=== PATIENT | male | born 1930 | race African-American/Black ===

== ENCOUNTER 2019-06-26 10:41 | Emergency (ER) | payer MEDICARE ==
[2019-06-26] MEDS ORDERED: Fentanyl 100 MCG/2 ML VIAL ONE (11:02)
[2019-06-26 11:23] LABS: #Basophils 0.1 thou/uL (0.0-0.2); #Monocytes 0.4 thou/uL (0.11-0.59); #Neutrophils 4.8 thou/uL (1.40-6.50); %Basophils 0.8 % (0.0-1.0); %Eosinophils 0.5 % (0.0-10.0); %Lymphocytes 15.5 % (21.0-51.0); %Monocytes 6.7 % (0.0-10.0); %Neutrophils 76.6 % (42.0-75.0); Anisocytosis SLIGHT = 6-15 cells (100X) (0-5/hpf); Elliptocytes SLIGHT = 2-5 cells (100X) (0-1/hpf); Hemoglobin 14.4 g/dL (14.0-18.0); MDiff Complete? YES; Mean Corpuscular HGB CONC 28.5 g/dL (32.0-36.0); Mean Corpuscular Hemoglobin 24.3 pg (27.0-31.0); Mean Corpuscular Volume 85.2 fL (78.0-98.0); Mean Platelet Volume 9.4 fL (7.4-10.4); Platelet Count 190 thou/uL (130-400); Poikilocytosis SLIGHT = 6-15 cells (100X) (0-5/hpf); RBC Distribution Width 14.9 % (11.5-14.5); Red Blood Cell (RBC) Count 5.92 mill/uL (4.70-6.10); White Blood Cell (WBC) Count 6.2 thou/uL (4.8-10.8)
[2019-06-26 11:36] LABS: ALT (SGPT) 18 U/L (8-55); AST (SGOT) 21 U/L (5-34); Albumin 3.9 g/dL (3.4-4.8); Alkaline Phosphatase 113 U/L (40-110); Anion Gap 17 mmol/L (10-20); BUN (Urea Nitrogen) 12 mg/dL (8.4-25.7); Calc. Creatinine Clearance 0 mL/min (70-130); Calcium 9.2 mg/dL (7.8-10.44); Carbon Dioxide 25 mmol/L (23-31); Chloride 104 mmol/L (98-107); Estimated GFR-MDRD 62; Globulin 4.5 g/dL (2.4-3.5); Glucose 72 mg/dL (83-110); Potassium 3.7 mmol/L (3.5-5.1); Protein, Total 8.4 g/dL (5.8-8.1); Sodium 142 mmol/L (136-145)
[2019-06-26 11:58] LABS: INR-International Normal Ratio 1.3; Prothrombin Time 16.1 SEC (12.0-14.7)
--- NOTE | 2019-06-26 12:39 | CT ---
CT BRAIN WITHOUT CONTRAST: 06/26/2019 HISTORY/TECHNIQUE: A noncontrast CT was done after a fall. FINDINGS: The ventricles are normal in size for age and atrophy and show no shift. No intracranial bleeding or extraaxial hematoma is seen. An old stroke in the right basal ganglia/internal capsule region is note d. There is no sign of acute stroke, mass or edema. The skull appears intact. The paranasal sinuses are clear. The mastoid air cells are clear, except fo r a few cells at the tip of the right mastoid process. IMPRESSION: Atrophy and old ischemic changes but no acute traumatic findings. Report called to German in ER at 11:45 on 06/26/2019. CODE CR POS: HOME
--- NOTE | 2019-06-26 12:45 | RAD ---
PORTABLE CHEST: 06/26/2019 1118 HOURS COMPARISON: No prior films are available for comparison. FINDINGS: This portable study shows the heart to be upper normal to borderline large. There is no congestive ch genna present. There is a little patchy increased density in the lower lobes that is likely atelectasi s or chronic. There might be a small amount of fluid in the left costophrenic angle but this could be easily chronic as well. I see no obvious rib fractures. There is no pneumothorax. The mediastinum sh ows no widening. The trachea deviates to the right as it crosses the aortic arch, which may be mildly dilated. Some calcified nodes and granulomas are noted on the left. IMPRESSION: Chronic changes but no definite acute findings. If an old film exists, it would be very useful to compare with. POS: HOME
[2019-06-26 13:01] LABS: Bilirubin Negative (Negative); Blood, Urine Trace (Negative); Clarity Clear (Clear); Glucose, Urine (Dipstick) Negative (Negative); Leukocyte Negative (Negative); Nitrite Negative (Negative); Protein, Urine (Dipstick) Negative (Neg-Trace); Urobilinogen 0.2 mg/dL (Less than 2)
[2019-06-26 13:07] LABS: RBC/HPF 0-3 HPF (0-3); Squamous Epithelial 0-3 HPF (0-3); WBC/HPF None Seen HPF (0-3)
[2019-06-26 13:08] LABS: Bacteria/HPF None Seen HPF (None Seen)
[2019-06-26] MEDS ORDERED: Morphine 2 MG/ML SYRINGE ONE (13:42)
--- NOTE | 2019-06-26 13:51 | RAD ---
LEFT HIP FOUR VIEWS: 06/26/2019 FINDINGS: There is a faint sclerotic line across the femoral neck on some of the views. On one view it seems to extend outside the neck but it is less certain on others. Given these findings and the difficulty in getting these films on this patient, I recommend doing a CT of the hip to remove all doubt and be bagley re there is no impacted fracture here. The adjacent pubic ring appears intact. There is no dislocatio n. The joint space is normal for age. IMPRESSION: Equivocal sclerotic line across the femoral neck. CT to be sure there is no impacted fracture is faizan mmended. Findings discussed with Dr. Cardenas at 1257 hours on 06/26/2019. CODE CR POS: HOME
--- NOTE | 2019-06-26 14:07 | CT ---
CT PELVIS: 06/26/2019 HISTORY/TECHNIQUE: A spiral CT of the pelvis was performed following trauma and for questionable findings on the patient 's plain film of the hip. Axial slices were acquired followed by coronal and sagittal reconstructions. FINDINGS: There is a tiny crack in the cortex of the anterior part of the left hip, at the junction of the neck and femoral head. A small cortical-like fragment is seen best on the sagittal images of the left hip , particularly images 42 and 43. There is a small angulation of cortex here on the axial images, part icularly image 69. In addition, there is a vague sclerotic line across the anterior part of the left femoral neck, best seen on the coronal images, slices 55 through 56. I cannot exclude an impacted fra cture here though this is more difficult to be certain about. The remainder of the bony pelvis appears intact. Degenerative changes are present in each hip joint, more so in the right than the left. The SI joints and arcuate lines of the pelvis are unremarkable. The surrounding soft tissues of the pelvis show perhaps a tiny trace of fluid in the rectovesical spa ce on the right, but there are certainly no large amounts of fluid present. No pelvic hematomas are a ppreciated. Degenerative changes are present in the lower lumbar spine. IMPRESSION: 1. Definite small fracture fragment of the left hip, at the junction of the femoral neck and femoral head, anteriorly. 2. Vague sclerotic line across the left femoral neck, seen best on coronal images. I cannot rule out an impacted subcapital fracture here. Findings discussed with Dr. Cardenas at 1328 hours on 06/26/2019. CODE CR POS: HOME
== END 2019-06-26 13:59 | disposition short-term general hospital (02) ==
LOC: BURERS 10:41
DX: S72.002A Fracture of unspecified part of neck of left femur, initial encounter for closed fracture (principal); S00.83XA Contusion of other part of head, initial encounter; Z79.01 Long term (current) use of anticoagulants; Z86.73 Personal history of transient ischemic attack (TIA), and cerebral infarction without residual deficits; W01.198A Fall on same level from slipping, tripping and stumbling with subsequent striking against other object, initial encounter
CPT/HCPCS: 36415; 70450; 71045; 72192; 80053; 81003; 81015; 85025; 85610; 85730; 96374; 96375; J2270; J3010

== ENCOUNTER 2019-06-30 20:34 | Inpatient (IN) | payer MEDICARE ==
[2019-07-01] MEDS ORDERED: Ibuprofen 200 MG TAB PO SCH (02:00)
[2019-07-01] MEDS: Acetaminophen 500 MG TAB PO SCH ×5 (02:15→23:28)
[2019-07-01 06:33] LABS: INR-International Normal Ratio 1.8; Platelet Count 205 thou/uL (130-400); Prothrombin Time 21.1 SEC (12.0-14.7)
[2019-07-01] MEDS ORDERED: Bisacodyl 10 MG SUPP PR PRN (07:47)
[2019-07-01] MEDS ORDERED: Warfarin Sodium 5 MG TAB PO SCH (09:00)
[2019-07-01] MEDS: Senokot S 8.6-50 MG TAB PO SCH ×2 (10:07→20:44)
[2019-07-01] MEDS: Gabapentin 100 MG CAP PO SCH ×3 (10:08→20:44)
[2019-07-01] MEDS: Ibuprofen 200 MG TAB PO SCH ×2 (13:05→21:00)
[2019-07-01] MEDS: Warfarin Sodium 5 MG TAB PO SCH (17:30)
[2019-07-01] MEDS ORDERED: Prevnar 13-Val Conj/PF 0.5 ML SYRINGE IM ONE (21:00)
[2019-07-01] MEDS ORDERED: FLU VACC TS2019-20(65YR UP)/PF 180 MCG/0.5 ML SYRINGE IM ONE (21:00)
[2019-07-02] MEDS: Ibuprofen 200 MG TAB PO SCH ×3 (05:18→21:09)
[2019-07-02] MEDS: Acetaminophen 500 MG TAB PO SCH ×4 (05:18→23:53)
[2019-07-02] MEDS: Senokot S 8.6-50 MG TAB PO SCH ×2 (08:48→20:13)
[2019-07-02] MEDS: Gabapentin 100 MG CAP PO SCH ×3 (08:49→20:13)
[2019-07-02] MEDS: Warfarin Sodium 5 MG TAB PO SCH (16:36)
[2019-07-03 05:35] LABS: Hemoglobin 13.5 g/dL (14.0-18.0); Platelet Count 172 thou/uL (130-400)
[2019-07-03] MEDS: Acetaminophen 500 MG TAB PO SCH ×3 (05:37→18:00)
[2019-07-03] MEDS: Ibuprofen 200 MG TAB PO SCH ×3 (05:37→21:28)
[2019-07-03] MEDS: Senokot S 8.6-50 MG TAB PO SCH ×2 (08:44→21:28)
[2019-07-03] MEDS: Gabapentin 100 MG CAP PO SCH ×3 (08:44→21:28)
[2019-07-03] MEDS ORDERED: Polyethylene Glycol 3350 17 GM Packet PO PRN (11:06)
[2019-07-03 16:03] LABS: INR-International Normal Ratio 2.3; Prothrombin Time 25.3 SEC (12.0-14.7)
[2019-07-03] MEDS: Warfarin Sodium 5 MG TAB PO SCH (18:00)
[2019-07-04] MEDS: Acetaminophen 500 MG TAB PO SCH ×5 (00:24→23:10)
[2019-07-04 05:09] LABS: INR-International Normal Ratio 2.5; PTT 46.2 SEC (22.9-36.1); Prothrombin Time 26.7 SEC (12.0-14.7)
[2019-07-04] MEDS: Ibuprofen 200 MG TAB PO SCH ×3 (05:45→21:00)
[2019-07-04] MEDS: Gabapentin 100 MG CAP PO SCH ×3 (08:42→21:00)
[2019-07-04] MEDS: Senokot S 8.6-50 MG TAB PO SCH ×2 (08:42→21:00)
[2019-07-04] MEDS: Warfarin Sodium 5 MG TAB PO SCH (17:26)
[2019-07-04] MEDS ORDERED: Zolpidem Tartrate 5 MG TAB PO SCH (21:15)
--- NOTE | 2019-07-05 03:53 | HP ---
PRIMARY CARE PHYSICIAN: Dr. Augustin. CHIEF COMPLAINT: Skilled rehabilitation with physical and occupational therapy after a recent fall on left side resulting to a left femoral fracture, status post percutaneous screw fixation. HISTORY OF PRESENT ILLNESS: Mr. 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 The patient is being treated at [facility] along with [facility] nurse for chronic venous ulcers. Mr. Bell was admitted on 06/26/2019 at [facility] after a mechanical fall from standing, resulting to injury on his left side. He sustained a left periorbital hematoma and left femoral neck fracture. The patient underwent percutaneous screw fixation of left femoral hip fracture under Dr. Franco Fernandes. The patient did well intra and postoperatively. He started physical therapy prior to his transfer to skilled rehab. Due to his decreased functional ability, decreased range of motion, decreased strength, decreased bed mobility with gait instability, he was referred for skilled rehabilitation. The patient is requiring minimal assistance x2 on bed mobility, transfers from supine to sitting position. He requires maximal assistance from sitting to standing, standing to sitting, and sitting to supine position. He denies any concern, pain is well controlled with his current pain regimen. He is participating with physical and occupational therapy. PAST MEDICAL HISTORY: 1. Hypertension. 2. CVA with left hemiparesis. 3. Prostate cancer. 4. 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 5. Gait instability. FAMILY HISTORY: Denies history of cancer or early coronary artery disease. PAST SURGICAL HISTORY: 1. Left femoral neck fracture, percutaneous screw fixation. 2. Prostatectomy. 3. Inguinal herniorrhaphy. ALLERGIES: NO KNOWN DRUG ALLERGIES. MEDICATIONS: 1. Tylenol 1000 mg every 6 hours p.r.n. for pain. 2. Dulcolax 10 mg suppository daily p.r.n. 3. Neurontin 100 mg t.i.d. 4. Ibuprofen 400 mg every 8 hours p.r.n. for pain. 5. Coumadin 5 mg daily. REVIEW OF SYSTEMS: GENERAL: No fever. No chills. No significant weight loss. HEENT: Positive for blurred vision. Positive for mild hearing loss. Negative for sore throat. CARDIOVASCULAR: Negative for chest pain. Negative for palpitations. RESPIRATORY: No wheezing or cough. Negative for shortness of breath. GASTROINTESTINAL: Negative for abdominal pain. Negative for nausea, vomiting, or change in appetite. GENITOURINARY: Negative for dysuria or hematuria. MUSCULOSKELETAL: Positive for a weak left shoulder secondary to residual weakness after his stroke. Positive for flexion contracture of left upper extremity with limited range of motion. Positive for decreased range of motion of the left lower extremity after recent hip surgery for femoral fracture. SKIN: Positive for ulcers/chronic wound secondary to chronic venous insufficiency. NEUROLOGIC: Positive for chronic weakness of left upper extremity. HEMATOLOGIC: Denies bruising or bleeding. PHYSICAL EXAMINATION: VITAL SIGNS: Blood pressure of 138/74, temperature of 97.5, pulse of 72, respiratory rate of 20, and O2 saturation 96% on room air. GENERAL: The patient is alert, oriented, not in respiratory distress. HEENT: Normocephalic and atraumatic. Pupils equally reactive to light. Negative for tonsillopharyngeal congestion. NECK: Supple. Negative for lymphadenopathy. CHEST AND LUNGS: Symmetrical expansion. Clear to auscultation. HEART: Regular rate and rhythm. Negative for murmur. ABDOMEN: Flat, soft, nontender. Normoactive bowel sounds. EXTREMITIES: Positive for left upper extremity flexion contracture. SKIN: Positive for left lower extremity wound ulcers, no bleeding, no drainage. MUSCULOSKELETAL: Positive for decreased range of motion of left upper extremity, slight weakness. PSYCH: Appropriate affect and demeanor. ASSESSMENT: 1. Left femoral neck fracture, status post percutaneous screw fixation, postop day #4. 2. Hypertension. 3. CVA with left hemiparesis. 4. Prostate cancer. 5. Chronic left lower extremity nonhealing wound with ulceration secondary to chronic venous insufficiency with stasis dermatitis. 6. Gait instability. 7. Full code. PLAN: 1. The patient will be evaluated and treated by PT and Occupational Therapy to improve pain level and range of motion. Resume Coumadin, daily INR and PT, pharmacy to dose Coumadin. 2. hydrogen power plant manager to help with discharge planning to safely transition including DME needs prior to safety transitioning to home. Anticipated stay at skilled rehab for the next two weeks. Job ID: [id number]
[2019-07-05 04:30] LABS: INR-International Normal Ratio 2.4; PTT 45.2 SEC (22.9-36.1); Prothrombin Time 26.3 SEC (12.0-14.7)
[2019-07-05] MEDS: Acetaminophen 500 MG TAB PO SCH ×3 (05:10→17:54)
[2019-07-05] MEDS: Ibuprofen 200 MG TAB PO SCH ×3 (05:11→21:58)
[2019-07-05] MEDS: Gabapentin 100 MG CAP PO SCH ×3 (08:45→21:59)
[2019-07-05] MEDS: Senokot S 8.6-50 MG TAB PO SCH ×2 (08:45→21:59)
[2019-07-05] MEDS: Warfarin Sodium 5 MG TAB PO SCH (17:54)
[2019-07-06] MEDS: Acetaminophen 500 MG TAB PO SCH ×5 (00:15→23:09)
[2019-07-06] MEDS: Ibuprofen 200 MG TAB PO SCH ×3 (05:43→20:52)
[2019-07-06 05:50] LABS: INR-International Normal Ratio 2.4; PTT 41.6 SEC (22.9-36.1); Prothrombin Time 25.7 SEC (12.0-14.7)
[2019-07-06] MEDS: Gabapentin 100 MG CAP PO SCH ×3 (09:09→20:52)
[2019-07-06] MEDS: Senokot S 8.6-50 MG TAB PO SCH ×2 (09:09→20:53)
[2019-07-06] MEDS: Warfarin Sodium 5 MG TAB PO SCH (17:08)
[2019-07-06] MEDS ORDERED: Zolpidem Tartrate 5 MG TAB PO SCH (22:45)
[2019-07-07 04:31] LABS: INR-International Normal Ratio 2.4; PTT 46.2 SEC (22.9-36.1); Prothrombin Time 26.1 SEC (12.0-14.7)
[2019-07-07] MEDS: Ibuprofen 200 MG TAB PO SCH ×3 (05:11→21:14)
[2019-07-07] MEDS: Acetaminophen 500 MG TAB PO SCH ×4 (05:11→23:44)
[2019-07-07] MEDS: Senokot S 8.6-50 MG TAB PO SCH ×2 (09:16→19:24)
[2019-07-07] MEDS: Gabapentin 100 MG CAP PO SCH ×3 (09:17→19:25)
[2019-07-07] MEDS: HYDROcodone/Acetaminophen 5/325 mg Tablet PO PRN ×2 (09:51→19:24)
[2019-07-07] MEDS: Warfarin Sodium 5 MG TAB PO SCH (16:45)
[2019-07-07] MEDS: Zolpidem Tartrate 5 MG TAB PO SCH (19:25)
[2019-07-08] MEDS: HYDROcodone/Acetaminophen 5/325 mg Tablet PO PRN (03:48)
[2019-07-08 05:00] LABS: INR-International Normal Ratio 2.8; Prothrombin Time 29.3 SEC (12.0-14.7)
[2019-07-08 05:01] LABS: PTT 53.9 SEC (22.9-36.1)
[2019-07-08] MEDS: Ibuprofen 200 MG TAB PO SCH ×3 (05:09→21:00)
[2019-07-08] MEDS: Acetaminophen 500 MG TAB PO SCH ×3 (05:09→17:14)
[2019-07-08] MEDS: Senokot S 8.6-50 MG TAB PO SCH ×2 (08:49→21:00)
[2019-07-08] MEDS: Gabapentin 100 MG CAP PO SCH ×3 (08:50→21:00)
[2019-07-08 14:08] LABS: #Basophils 0.2 thou/uL (0.0-0.2); #Eosinphils 0.1 thou/uL (0.0-0.7); #Lymphocytes 1.9 thou/uL (1.20-3.40); #Monocytes 0.8 thou/uL (0.11-0.59); #Neutrophils 8.4 thou/uL (1.40-6.50); %Basophils 1.7 % (0.0-1.0); %Eosinophils 0.6 % (0.0-10.0); %Lymphocytes 16.6 % (21.0-51.0); %Monocytes 7.4 % (0.0-10.0); %Neutrophils 73.7 % (42.0-75.0); Hemoglobin 10.8 g/dL (14.0-18.0); Mean Corpuscular HGB CONC 29.3 g/dL (32.0-36.0); Mean Corpuscular Volume 85.3 fL (78.0-98.0); Mean Platelet Volume 9.3 fL (7.4-10.4); Platelet Count 248 thou/uL (130-400); RBC Distribution Width 15.1 % (11.5-14.5); Red Blood Cell (RBC) Count 4.32 mill/uL (4.70-6.10); White Blood Cell (WBC) Count 11.3 thou/uL (4.8-10.8)
[2019-07-08 14:11] LABS: CRP (Inflammatory) 7.36 mg/dL (= or < 0.5); Uric Acid 4.8 mg/dL (3.5-7.2)
[2019-07-08 14:26] LABS: Anisocytosis SLIGHT = 6-15 cells (100X) (0-5/hpf); MDiff Complete? YES; Platelet Morphology Comment Appears Adequate
[2019-07-08] MEDS: Warfarin Sodium 5 MG TAB PO SCH (17:15)
[2019-07-08] MEDS: Zolpidem Tartrate 5 MG TAB PO SCH (21:00)
--- NOTE | 2019-07-08 21:18 | RAD ---
LEFT KNEE THREE VIEWS: 07/08/19 No fracture or joint effusion was seen. There is narrowing of the joint space, particularly medially. Some minor osteophytes are present but they are not big. There is evidence of old Lola-Schlatter's disease. There were no bony destructive lesions. IMPRESSION: Mild arthritic changes. POS: HOME
[2019-07-09] MEDS: Acetaminophen 500 MG TAB PO SCH ×5 (00:21→23:15)
[2019-07-09] MEDS: Ibuprofen 200 MG TAB PO SCH ×3 (05:36→21:02)
[2019-07-09 05:47] LABS: PTT 71.1 SEC (22.9-36.1); Prothrombin Time 30.5 SEC (12.0-14.7)
[2019-07-09] MEDS: Senokot S 8.6-50 MG TAB PO SCH ×2 (09:32→20:10)
[2019-07-09] MEDS: Gabapentin 100 MG CAP PO SCH ×3 (09:32→20:10)
[2019-07-09] MEDS: HYDROcodone/Acetaminophen 5/325 mg Tablet PO PRN ×2 (09:35→20:10)
[2019-07-09] MEDS: Warfarin Sodium 5 MG TAB PO SCH (18:31)
[2019-07-09] MEDS: Zolpidem Tartrate 5 MG TAB PO SCH (20:10)
--- NOTE | 2019-07-09 22:01 | RAD ---
LEFT HIP TWO VIEWS: 07/09/19 Comparison is made with a 06/26/2019 study. The subcapital fracture of the left hip has been nailed. Slight sclerosis is seen across the impacted fracture line. There are no acute changes present. The joint space is no different than before. The adjacent pubic ring appears intact. IMPRESSION: No acute finding. POS: HOME
--- NOTE | 2019-07-09 22:03 | RAD ---
LEFT FEMUR: 07/09/19 Multiple views were obtained. No acute fracture was appreciated. No bony destructive lesion was seen. There is a little bit of periosteal reaction in the distal femoral shaft medially and some in the mo re proximal portions of the femoral shaft. The findings are more likely longstanding. As they are fernando ewhat diffuse, it is less likely that they relate to any stress injury. Degenerative changes are prom inent around the knee, especially the medial compartment. IMPRESSION: No acute bony findings. Periosteal reaction seen at several places in the femoral shaft is probably a ge related. POS: HOME
[2019-07-10] MEDS: Acetaminophen 500 MG TAB PO SCH ×3 (05:06→18:29)
[2019-07-10] MEDS: Ibuprofen 200 MG TAB PO SCH ×3 (05:06→21:06)
[2019-07-10 06:49] LABS: INR-International Normal Ratio 2.9; Prothrombin Time 30.2 SEC (12.0-14.7)
[2019-07-10 06:50] LABS: PTT 72.7 SEC (22.9-36.1)
[2019-07-10] MEDS: Senokot S 8.6-50 MG TAB PO SCH ×2 (09:28→21:06)
[2019-07-10] MEDS: Gabapentin 100 MG CAP PO SCH ×3 (09:28→21:06)
[2019-07-10] MEDS: Warfarin Sodium 5 MG TAB PO SCH (16:40)
[2019-07-10] MEDS: Zolpidem Tartrate 5 MG TAB PO SCH (21:06)
[2019-07-11] MEDS: Acetaminophen 500 MG TAB PO SCH ×5 (00:56→23:08)
[2019-07-11] MEDS: Ibuprofen 200 MG TAB PO SCH ×3 (05:40→20:45)
[2019-07-11 05:54] LABS: INR-International Normal Ratio 3.1; PTT 44.7 SEC (22.9-36.1); Prothrombin Time 31.4 SEC (12.0-14.7)
[2019-07-11] MEDS: Gabapentin 100 MG CAP PO SCH ×3 (10:27→20:45)
[2019-07-11] MEDS: Senokot S 8.6-50 MG TAB PO SCH ×2 (10:27→20:46)
[2019-07-11] MEDS: Warfarin Sodium 5 MG TAB PO SCH (18:37)
[2019-07-11] MEDS: Zolpidem Tartrate 5 MG TAB PO SCH (20:46)
[2019-07-12] MEDS: Acetaminophen 500 MG TAB PO SCH ×3 (05:11→17:46)
[2019-07-12] MEDS: Ibuprofen 200 MG TAB PO SCH ×3 (05:11→20:49)
[2019-07-12 05:31] LABS: INR-International Normal Ratio 3.1
[2019-07-12 05:32] LABS: PTT 68.5 SEC (22.9-36.1)
[2019-07-12 06:28] VITALS: BMI 20.2
[2019-07-12] MEDS: Senokot S 8.6-50 MG TAB PO SCH ×2 (09:07→20:50)
[2019-07-12] MEDS: Gabapentin 100 MG CAP PO SCH ×3 (09:08→20:50)
[2019-07-12] MEDS: Warfarin Sodium 5 MG TAB PO SCH (15:18)
[2019-07-12] MEDS: Zolpidem Tartrate 5 MG TAB PO SCH (20:50)
[2019-07-13] MEDS: Acetaminophen 500 MG TAB PO SCH ×5 (00:21→22:51)
[2019-07-13 05:31] LABS: INR-International Normal Ratio 3.1
[2019-07-13 05:32] LABS: PTT 73.6 SEC (22.9-36.1)
[2019-07-13] MEDS: Ibuprofen 200 MG TAB PO SCH ×3 (05:38→22:57)
[2019-07-13] MEDS: Gabapentin 100 MG CAP PO SCH ×3 (08:42→20:40)
[2019-07-13] MEDS: Senokot S 8.6-50 MG TAB PO SCH ×2 (11:59→20:40)
[2019-07-13] MEDS: Warfarin Sodium 2 MG TAB PO SCH (17:23)
[2019-07-13] MEDS ORDERED: Oseltamivir 75 MG CAP ONE (17:41)
[2019-07-13] MEDS: Zolpidem Tartrate 5 MG TAB PO SCH (20:39)
[2019-07-13] MEDS: HYDROcodone/Acetaminophen 5/325 mg Tablet PO PRN (20:40)
[2019-07-14] MEDS: Acetaminophen 500 MG TAB PO SCH ×3 (05:01→18:38)
[2019-07-14] MEDS: Ibuprofen 200 MG TAB PO SCH ×3 (05:01→21:27)
[2019-07-14 05:30] LABS: PTT 59.8 SEC (22.9-36.1)
[2019-07-14] MEDS: HYDROcodone/Acetaminophen 5/325 mg Tablet PO PRN ×2 (09:43→21:27)
[2019-07-14] MEDS: Gabapentin 100 MG CAP PO SCH ×3 (09:44→21:27)
[2019-07-14] MEDS: Senokot S 8.6-50 MG TAB PO SCH ×2 (09:44→21:26)
[2019-07-14] MEDS: Warfarin Sodium 2 MG TAB PO SCH (18:39)
[2019-07-14] MEDS: Zolpidem Tartrate 5 MG TAB PO SCH (21:27)
[2019-07-15] MEDS: Acetaminophen 500 MG TAB PO SCH ×5 (00:43→23:39)
[2019-07-15] MEDS: Ibuprofen 200 MG TAB PO SCH ×3 (05:09→20:37)
[2019-07-15 05:31] LABS: INR-International Normal Ratio 2.8; PTT 53.7 SEC (22.9-36.1); Prothrombin Time 29.6 SEC (12.0-14.7)
[2019-07-15] MEDS: Senokot S 8.6-50 MG TAB PO SCH ×2 (08:44→20:36)
[2019-07-15] MEDS: Gabapentin 100 MG CAP PO SCH ×3 (08:44→20:36)
[2019-07-15] MEDS: HYDROcodone/Acetaminophen 5/325 mg Tablet PO PRN (09:20)
[2019-07-15] MEDS: Warfarin Sodium 2 MG TAB PO SCH (18:00)
[2019-07-15] MEDS: Zolpidem Tartrate 5 MG TAB PO SCH (20:37)
[2019-07-16] MEDS: Ibuprofen 200 MG TAB PO SCH ×2 (05:44→13:20)
[2019-07-16] MEDS: Acetaminophen 500 MG TAB PO SCH ×3 (05:44→17:09)
[2019-07-16 05:54] LABS: INR-International Normal Ratio 2.7; Prothrombin Time 28.3 SEC (12.0-14.7)
[2019-07-16 05:55] LABS: PTT 55.6 SEC (22.9-36.1)
[2019-07-16 06:36] VITALS: BP 129/71; TEMP 97.8
[2019-07-16] MEDS: Senokot S 8.6-50 MG TAB PO SCH (09:30)
[2019-07-16] MEDS: Gabapentin 100 MG CAP PO SCH ×2 (09:30→15:08)
--- NOTE | 2019-07-16 13:52 | PRG ---
DATE OF SERVICE: 07/02/2019 SUBJECTIVE: The patient is doing well overall, he is participating with physical therapy, he walked about 14 feet today using a rolling walker with platform, he still has decreased balance, endurance, strength, pain level is tolerable. OBJECTIVE: VITAL SIGNS: Blood pressure of 155/83, temperature of 98.1, pulse of 75, respirations of 18, O2 saturation 97% on room air. GENERAL: The patient is alert, oriented, not in respiratory distress. HEENT: Normocephalic and atraumatic. Pupils equally reactive to light. NECK: Supple. Negative for lymphadenopathy. CHEST AND LUNGS: Symmetrical expansion. Clear to auscultation. HEART: Regular rate and rhythm. Negative for murmur. ABDOMEN: Flat, soft, and nontender. Normoactive bowel sounds. EXTREMITIES: Positive for left upper extremity flexion contracture. Left lower extremity, left hip, positive for swelling with mild tenderness, negative for bruising or ecchymosis, incision scar clean, dry, intact. Positive for decreased range of motion of the left lower extremity. PSYCH: Appropriate affect and demeanor. ASSESSMENT: 1. Left femoral neck fracture, status post percutaneous screw fixation, postop day #6. 2. Hypertension. 3. Cerebrovascular accident with left-sided hemiparesis with left upper extremity flexion contracture. 4. Prostate cancer. 5. Chronic left lower extremity nonhealing wound with ulceration secondary to chronic venous insufficiency with stasis dermatitis, under wound care. 6. Gait instability. 7. Full code. PLAN: 1. The patient will continue to work with physical and occupational therapy, improve pain level and range of motion. 2. Continue Coumadin, pharmacy to dose, daily INR and PT. 3. network architect manager to assist us with discharge planning including DME needs. Anticipated stay to skilled rehab within the next 2 weeks. Job ID: [id number]
--- NOTE | 2019-07-16 13:54 | PRG ---
DATE OF SERVICE: 07/09/2019 SUBJECTIVE: The patient is complaining of increasing left hip pain with palpable swelling on the outer aspect of the thigh, tender, worsen with any movement. He is not able to participate with physical therapy for the past 2 to 3 days. He is requiring more pain medicine. The patient denies any fever or chills. His appetite is stable. OBJECTIVE: VITAL SIGNS: Blood pressure of 128/58, temperature of 97.7, pulse of 82, respiratory rate of 18, O2 saturation 96% on room air. GENERAL: The patient is alert, oriented, not in respiratory distress. HEENT: Normocephalic, atraumatic. Pupils are equal, reactive to light. NECK: Supple. Negative for lymphadenopathy. CHEST AND LUNGS: Symmetrical expansion. Clear to auscultation. HEART: Regular rate and rhythm. Negative for murmur. ABDOMEN: Flat, soft, nontender. Normoactive bowel sounds. EXTREMITIES: Left hip noted to be tender to touch. Positive for diffuse swelling on the left outer thigh, tender to touch. Negative for bruising. Negative for ecchymosis. Decreased range of motion of the left lower extremity. ASSESSMENT: 1. Left femoral neck fracture, status post percutaneous screw fixation. Postop day #13. 2. Hypertension. 3. Cerebrovascular accident with left hemiparesis. 4. Acute onset of left lower extremity swelling with tenderness. 5. Prostate cancer. 6. Chronic left lower extremity nonhealing wound with ulceration secondary to chronic venous insufficiency with stasis dermatitis. 7. Gait instability. 8. Full code. PLAN: 1. Order hip and left femur x-ray. 2. Continue present pain medicine. 3. Resume physical and occupational therapy. 4. Continue physical therapy under home health once the patient gets discharged. Order for a rolling walker and platform to [employer], we will send prescription. 5. Continue wound care under home health when he gets discharged. 6. quality assurance project manager to assist us with discharge planning. Job ID: [id number]
[2019-07-16] MEDS: Warfarin Sodium 2 MG TAB PO SCH (17:07)
== END 2019-07-16 18:00 | disposition home or self-care (01) | DRG 560 ==
LOC: BURMED 20:34 → UNDOADMIN 20:34
PROVIDERS: ADMIT Family Medicine; ATTEND Family Medicine
DX: Z47.89 Encounter for other orthopedic aftercare (principal); I69.354 Hemiplegia and hemiparesis following cerebral infarction affecting left non-dominant side; L97.929 Non-pressure chronic ulcer of unspecified part of left lower leg with unspecified severity; I10 Essential (primary) hypertension; S72.002D Fracture of unspecified part of neck of left femur, subsequent encounter for closed fracture with routine healing; Z85.46 Personal history of malignant neoplasm of prostate; Z98.890 Other specified postprocedural states; Z79.899 Other long term (current) drug therapy; R26.89 Other abnormalities of gait and mobility; I87.2 Venous insufficiency (chronic) (peripheral)
CPT/HCPCS: 36415; 82565; 84550; 85014; 85018; 85025; 85049; 85610; 85730; 86140; 97602

== ENCOUNTER 2020-03-31 15:32 | Emergency (ER) | payer MEDICARE ==
[2020-03-31] MEDS ORDERED: traMADol HCl 50 MG TAB ONE (16:23)
--- NOTE | 2020-03-31 17:26 | RAD ---
LEFT KNEE FOUR VIEWS: 03/31/20 No acute fracture was seen, nor is there a joint effusion. Osteoarthritic change is present with mild medial joint space narrowing and some osteophytes. There is evidence of old [place]-Schlatter's disea se. Some calcification is seen in the popliteal artery. IMPRESSION: Arthritic changes but no acute findings. POS: HOME
--- NOTE | 2020-03-31 17:28 | RAD ---
LEFT HIP TWO VIEWS: 03/31/20 Comparison is made with the 07/09 study. There has been no adverse interval change. The nailing of the prior hip fracture is noted and has a n ormal expected appearance. The articular surface of the femoral head is smooth. Both hips show mild j oint space narrowing but symmetrically so. The adjacent pubic rings are intact. Some arthritic change s are seen in the lower lumbar spine. IMPRESSION: No acute findings. POS: HOME
== END 2020-03-31 17:15 | disposition home or self-care (01) ==
LOC: BURERS 15:32
DX: S70.02XA Contusion of left hip, initial encounter (principal); Z86.73 Personal history of transient ischemic attack (TIA), and cerebral infarction without residual deficits; Z79.01 Long term (current) use of anticoagulants; W18.30XA Fall on same level, unspecified, initial encounter

== ENCOUNTER 2020-09-29 20:36 | Emergency (ER) | payer MEDICARE, OTHER ==
[2020-09-29] MEDS ORDERED: traMADol HCl 50 MG TAB ONE (20:53)
[2020-09-29 22:08] LABS: Mean Corpuscular HGB CONC 30.1 g/dL (32.0-36.0); Mean Corpuscular Hemoglobin 25.6 pg (27.0-31.0); Mean Corpuscular Volume 85.1 fL (78.0-98.0); Mean Platelet Volume 8.6 fL (7.4-10.4); Platelet Count 204 thou/uL (130-400); RBC Distribution Width 13.9 % (11.5-14.5); Red Blood Cell (RBC) Count 5.85 mill/uL (4.70-6.10); White Blood Cell (WBC) Count 5.8 thou/uL (4.8-10.8)
[2020-09-29 22:11] LABS: INR-International Normal Ratio 0.9; PTT 31.3 sec (22.9-36.1); Prothrombin Time 12.6 sec (12.0-14.7)
[2020-09-29 22:20] LABS: ALT (SGPT) 14 U/L (8-55); AST (SGOT) 21 U/L (5-34); Albumin 4.1 g/dL (3.4-4.8); Alkaline Phosphatase 109 U/L (40-110); Anion Gap 16 mmol/L (10-20); BUN (Urea Nitrogen) 16 mg/dL (8.4-25.7); Bilirubin, Total 1.1 mg/dL (0.2-1.2); Calc. Creatinine Clearance 0 mL/min (70-130); Calcium 9.4 mg/dL (7.8-10.44); Carbon Dioxide 25 mmol/L (23-31); Chloride 107 mmol/L (98-107); Globulin 2.2 g/dL (2.4-3.5); Glucose 84 mg/dL (83-110); Potassium 4.1 mmol/L (3.5-5.1); Protein, Total 6.3 g/dL (5.8-8.1); Sodium 144 mmol/L (136-145)
[2020-09-29 22:49] LABS: Band 7 % (5-11); Lymphocytes 27 % (21-51); MDiff Complete? YES; Monocytes 11 % (0-10); Neutrophil 52 % (42-75); Platelet Morphology Comment Appears Adequate; RBC Morphology Normal; Reactive Lymphocytes 1 % (0-10)
== END 2020-09-29 23:29 | disposition short-term general hospital (02) ==
LOC: BURERS 20:36
DX: S06.5X0A Traumatic subdural hemorrhage without loss of consciousness, initial encounter (principal); S06.6X0A Traumatic subarachnoid hemorrhage without loss of consciousness, initial encounter; W01.0XXA Fall on same level from slipping, tripping and stumbling without subsequent striking against object, initial encounter
CPT/HCPCS: 70450; 72125; 80053; 85025; 85610; 85730; 94760

== ENCOUNTER 2020-10-06 14:44 | Inpatient (IN) | payer MEDICARE ==
[2020-10-06] MEDS: Gabapentin 100 MG CAP PO SCH (20:30)
[2020-10-06] MEDS: Senokot S 8.6-50 MG TAB PO SCH (20:31)
[2020-10-06] MEDS: Acetaminophen 500 MG TAB PO PRN (20:31)
[2020-10-06] MEDS: Cyclobenzaprine 10 MG TAB PO PRN (20:31)
[2020-10-07] MEDS: Atorvastatin Calcium 10 MG TAB PO SCH (08:03)
[2020-10-07] MEDS: Acetaminophen 500 MG TAB PO PRN ×2 (08:03→17:18)
[2020-10-07] MEDS: Senokot S 8.6-50 MG TAB PO SCH ×2 (08:03→21:01)
[2020-10-07] MEDS: Gabapentin 100 MG CAP PO SCH ×3 (08:04→21:01)
[2020-10-07] MEDS: traMADol HCl 50 MG TAB PO PRN (21:02)
[2020-10-08] MEDS: Atorvastatin Calcium 10 MG TAB PO SCH (08:03)
[2020-10-08] MEDS: Senokot S 8.6-50 MG TAB PO SCH ×2 (08:03→20:28)
[2020-10-08] MEDS: Gabapentin 100 MG CAP PO SCH ×3 (08:03→20:31)
[2020-10-08] MEDS: Acetaminophen 500 MG TAB PO PRN ×2 (08:04→13:49)
[2020-10-08] MEDS: traMADol HCl 50 MG TAB PO PRN (20:28)
[2020-10-08] MEDS: Cyclobenzaprine 10 MG TAB PO PRN (20:29)
[2020-10-09] MEDS: Gabapentin 100 MG CAP PO SCH ×3 (08:10→20:20)
[2020-10-09] MEDS: Atorvastatin Calcium 10 MG TAB PO SCH (08:12)
[2020-10-09] MEDS: Senokot S 8.6-50 MG TAB PO SCH ×2 (08:12→20:20)
[2020-10-09] MEDS: traMADol HCl 50 MG TAB PO PRN ×2 (08:13→21:52)
[2020-10-10] MEDS: Atorvastatin Calcium 10 MG TAB PO SCH (08:38)
[2020-10-10] MEDS: Gabapentin 100 MG CAP PO SCH ×3 (08:38→20:25)
[2020-10-10] MEDS: Senokot S 8.6-50 MG TAB PO SCH ×2 (08:39→20:20)
[2020-10-11] MEDS: traMADol HCl 50 MG TAB PO PRN (03:00)
[2020-10-11] MEDS: Atorvastatin Calcium 10 MG TAB PO SCH (09:11)
[2020-10-11] MEDS: Senokot S 8.6-50 MG TAB PO SCH ×2 (09:11→20:26)
[2020-10-11] MEDS: Gabapentin 100 MG CAP PO SCH ×3 (09:12→20:26)
[2020-10-12] MEDS: traMADol HCl 50 MG TAB PO PRN (01:01)
[2020-10-12] MEDS: Senokot S 8.6-50 MG TAB PO SCH ×2 (09:16→21:24)
[2020-10-12] MEDS: Atorvastatin Calcium 10 MG TAB PO SCH (09:16)
[2020-10-12] MEDS: Gabapentin 100 MG CAP PO SCH ×3 (09:17→21:24)
[2020-10-13] MEDS: traMADol HCl 50 MG TAB PO PRN (07:40)
[2020-10-13] MEDS: Gabapentin 100 MG CAP PO SCH ×3 (08:52→21:09)
[2020-10-13] MEDS: Atorvastatin Calcium 10 MG TAB PO SCH (08:52)
[2020-10-13] MEDS: Senokot S 8.6-50 MG TAB PO SCH ×2 (08:52→21:09)
[2020-10-14] MEDS: Gabapentin 100 MG CAP PO SCH ×3 (08:32→20:56)
[2020-10-14] MEDS: Atorvastatin Calcium 10 MG TAB PO SCH (08:32)
[2020-10-14] MEDS: Senokot S 8.6-50 MG TAB PO SCH ×2 (08:32→20:56)
[2020-10-15] MEDS: Atorvastatin Calcium 10 MG TAB PO SCH (08:22)
[2020-10-15] MEDS: Gabapentin 100 MG CAP PO SCH ×3 (08:22→21:53)
[2020-10-15] MEDS: Senokot S 8.6-50 MG TAB PO SCH ×2 (08:22→21:53)
[2020-10-16] MEDS: traMADol HCl 50 MG TAB PO PRN (01:58)
[2020-10-16] MEDS: Senokot S 8.6-50 MG TAB PO SCH ×2 (09:01→21:10)
[2020-10-16] MEDS: Gabapentin 100 MG CAP PO SCH ×3 (09:01→21:10)
[2020-10-16] MEDS: Atorvastatin Calcium 10 MG TAB PO SCH (09:01)
[2020-10-16] MEDS: Acetaminophen 500 MG TAB PO PRN ×2 (11:31→21:09)
[2020-10-17] MEDS: Atorvastatin Calcium 10 MG TAB PO SCH (09:02)
[2020-10-17] MEDS: Gabapentin 100 MG CAP PO SCH ×3 (09:02→20:44)
[2020-10-17] MEDS: Senokot S 8.6-50 MG TAB PO SCH ×2 (09:03→20:45)
[2020-10-17] MEDS: Acetaminophen 500 MG TAB PO PRN ×2 (09:03→20:45)
[2020-10-18] MEDS: Senokot S 8.6-50 MG TAB PO SCH ×2 (09:01→20:51)
[2020-10-18] MEDS: Atorvastatin Calcium 10 MG TAB PO SCH (09:01)
[2020-10-18] MEDS: Gabapentin 100 MG CAP PO SCH ×3 (09:02→20:50)
[2020-10-18] MEDS: Acetaminophen 500 MG TAB PO PRN (20:51)
[2020-10-19] MEDS: Acetaminophen 500 MG TAB PO PRN ×2 (06:10→16:30)
[2020-10-19] MEDS: Senokot S 8.6-50 MG TAB PO SCH ×2 (09:32→21:39)
[2020-10-19] MEDS: Gabapentin 100 MG CAP PO SCH ×3 (09:32→21:37)
[2020-10-19] MEDS: Atorvastatin Calcium 10 MG TAB PO SCH (09:33)
[2020-10-20] MEDS: Atorvastatin Calcium 10 MG TAB PO SCH (09:04)
[2020-10-20] MEDS: Senokot S 8.6-50 MG TAB PO SCH ×2 (09:04→20:28)
[2020-10-20] MEDS: Gabapentin 100 MG CAP PO SCH ×3 (09:05→20:28)
[2020-10-20] MEDS: Acetaminophen 500 MG TAB PO PRN ×2 (15:08→22:04)
[2020-10-20] MEDS: Cyclobenzaprine 10 MG TAB PO PRN (20:29)
[2020-10-21] MEDS: Gabapentin 100 MG CAP PO SCH ×3 (08:03→20:46)
[2020-10-21] MEDS: Senokot S 8.6-50 MG TAB PO SCH ×2 (08:04→20:46)
[2020-10-21] MEDS: Atorvastatin Calcium 10 MG TAB PO SCH (08:04)
[2020-10-21] MEDS: Acetaminophen 500 MG TAB PO PRN (14:48)
[2020-10-21] MEDS: Cyclobenzaprine 10 MG TAB PO PRN (20:46)
[2020-10-22] MEDS: Gabapentin 100 MG CAP PO SCH ×3 (08:53→20:32)
[2020-10-22] MEDS: Senokot S 8.6-50 MG TAB PO SCH ×2 (08:53→20:31)
[2020-10-22] MEDS: Atorvastatin Calcium 10 MG TAB PO SCH (08:54)
[2020-10-22] MEDS: Cyclobenzaprine 10 MG TAB PO PRN (20:31)
[2020-10-23 06:12] VITALS: BMI 25.2
[2020-10-23] MEDS: Gabapentin 100 MG CAP PO SCH ×3 (08:43→21:40)
[2020-10-23] MEDS: Senokot S 8.6-50 MG TAB PO SCH ×2 (08:44→21:39)
[2020-10-23] MEDS: Atorvastatin Calcium 10 MG TAB PO SCH (08:44)
[2020-10-24] MEDS: Senokot S 8.6-50 MG TAB PO SCH ×2 (08:27→20:27)
[2020-10-24] MEDS: Gabapentin 100 MG CAP PO SCH ×3 (08:27→20:27)
[2020-10-24] MEDS: Atorvastatin Calcium 10 MG TAB PO SCH (08:31)
[2020-10-25] MEDS: Cyclobenzaprine 10 MG TAB PO PRN ×2 (00:35→16:40)
[2020-10-25] MEDS: Acetaminophen 500 MG TAB PO PRN ×2 (09:30→22:06)
[2020-10-25] MEDS: Gabapentin 100 MG CAP PO SCH ×3 (09:31→20:15)
[2020-10-25] MEDS: Senokot S 8.6-50 MG TAB PO SCH ×2 (09:33→20:15)
[2020-10-25] MEDS: Atorvastatin Calcium 10 MG TAB PO SCH (09:34)
[2020-10-26 05:00] VITALS: BP 114/76; TEMP 97.6
[2020-10-26] MEDS: Atorvastatin Calcium 10 MG TAB PO SCH (10:29)
[2020-10-26] MEDS: Gabapentin 100 MG CAP PO SCH ×2 (10:30→16:47)
[2020-10-26] MEDS: Senokot S 8.6-50 MG TAB PO SCH (10:33)
== END 2020-10-26 17:55 | disposition home or self-care (01) | DRG 948 ==
LOC: BURMED 16:00
PROVIDERS: ADMIT Family Medicine; ATTEND Family Medicine
DX: R53.81 Other malaise (principal); S06.5X0D Traumatic subdural hemorrhage without loss of consciousness, subsequent encounter; W18.30XD Fall on same level, unspecified, subsequent encounter; S06.6X0D Traumatic subarachnoid hemorrhage without loss of consciousness, subsequent encounter

== ENCOUNTER 2021-10-02 08:00 | Emergency (ER) | payer MEDICARE, OTHER ==
[2021-10-02 08:44] LABS: #Basophils 0.1 thou/uL (0.0-0.2); #Eosinphils 0.1 thou/uL (0.0-0.7); #Lymphocytes 1.8 thou/uL (1.20-3.40); #Monocytes 0.4 thou/uL (0.11-0.59); #Neutrophils 2.5 thou/uL (1.40-6.50); %Basophils 1.6 % (0.0-1.0); %Lymphocytes 36.5 % (21.0-51.0); %Monocytes 8.9 % (0.0-10.0); Hemoglobin 14.4 g/dL (14.0-18.0); Mean Corpuscular HGB CONC 30.3 g/dL (32.0-36.0); Mean Corpuscular Hemoglobin 26.1 pg (27.0-31.0); Mean Platelet Volume 9.1 fL (7.4-10.4); Platelet Count 185 thou/uL (130-400); RBC Distribution Width 13.7 % (11.5-14.5); Red Blood Cell (RBC) Count 5.52 mill/uL (4.70-6.10); White Blood Cell (WBC) Count 4.9 thou/uL (4.8-10.8)
[2021-10-02] MEDS ORDERED: Lidocaine 1% w/Epinephrine 1:100K 20 ML VIAL ONE (08:53)
[2021-10-02 08:56] LABS: ALT (SGPT) 9 U/L (8-55); AST (SGOT) 14 U/L (5-34); Albumin 3.6 g/dL (3.4-4.8); Alkaline Phosphatase 78 U/L (40-110); Anion Gap 17 mmol/L (10-20); BUN (Urea Nitrogen) 9 mg/dL (8.4-25.7); Calc. Creatinine Clearance 0 mL/min (70-130); Calcium 9.3 mg/dL (7.8-10.44); Carbon Dioxide 25 mmol/L (23-31); Chloride 104 mmol/L (98-107); Globulin 4.1 g/dL (2.4-3.5); Glucose 83 mg/dL (83-110); Lipase 16 U/L (8-78); Potassium 3.2 mmol/L (3.5-5.1); Protein, Total 7.7 g/dL (5.8-8.1); Sodium 143 mmol/L (136-145)
[2021-10-02] MEDS ORDERED: Bacitracin 1 PK ONE (09:06)
[2021-10-02] MEDS ORDERED: Boostrix 0.5 ML (Tdap) VIAL ONE (09:20)
== END 2021-10-02 11:52 | disposition home or self-care (01) ==
LOC: BURERS 08:00
DX: S05.42XA Penetrating wound of orbit with or without foreign body, left eye, initial encounter (principal); G62.9 Polyneuropathy, unspecified; W06.XXXA Fall from bed, initial encounter; Z23 Encounter for immunization; Z86.73 Personal history of transient ischemic attack (TIA), and cerebral infarction without residual deficits
CPT/HCPCS: 12011; 36415; 70450; 72125; 80053; 83605; 83690; 85025; 90471; 90715